=== PATIENT | male | born 1980 | race Caucasian/White ===

== ENCOUNTER 2018-06-01 15:33 | Emergency (ER) | payer OTHER ==
[~2018-06-01] VITALS: Ht 167.6 cm; Wt 87.7 kg
[2018-06-01 15:35] VITALS: BP 135/81
== END 2018-06-01 17:38 | disposition home or self-care (01) ==
LOC: ED 17:33
DX: G89.29 Other chronic pain (principal); M79.662 Pain in left lower leg; M25.562 Pain in left knee; M79.652 Pain in left thigh; G43.909 Migraine, unspecified, not intractable, without status migrainosus
CPT/HCPCS: 99284